=== PATIENT | female | born 1935 | race Hispanic/Latino ===

== ENCOUNTER 2018-10-08 05:30 | Day surgery (SDC) | payer OTHER ==
[2018-10-06 13:35] LABS: BASOPHILS % (AUTO) 1.1 % (0.0-5.0); EOSINOPHILS % (AUTO) 1.3 % (0.0-8.0); HEMATOCRIT 39.5 % (36-48); LYMPHOCYTES % (AUTO) 33.1 % (21.0-51.0); MEAN CORPUSCULAR HEMOGLOBIN 31.9 pg (27.0-33.0); MEAN CORPUSCULAR HGB CONC 33.9 g/dL (32.0-36.0); MEAN CORPUSCULAR VOLUME 93.9 fL (79-99); MONOCYTES % (AUTO) 7.1 % (3.0-13.0); NEUTROPHILS % (AUTO) 57.4 % (40.0-77.0); PLATELET COUNT (AUTO) 171 K/uL (130-400); RED BLOOD CELL COUNT(AUTO) 4.21 MIL/uL (4.00-5.50); RED CELL DISTRIBUTION WIDTH 14.4 % (11.0-15.5); WHITE BLOOD COUNT (AUTO) 9.3 K/uL (4.8-10.8)
[2018-10-06 13:45] VITALS: BP 149/60
[2018-10-06 13:46] LABS: CREATININE 1.4 mg/dL (0.5-1.5); POTASSIUM 3.9 mmol/L (3.5-5.1)
[2018-10-06 13:55] LABS: INR 1.03 (0.85-1.15); PARTIAL THROMBOPLASTIN TIME 28.9 SEC (26.3-35.5); PROTHROMBIN TIME 10.8 SEC (9.6-11.6)
[2018-10-08] VITALS (10 sets, daily range): BP systolic 105–141; BP diastolic 59–86
[~2018-10-08] VITALS: Ht 154.9 cm; Wt 85.8 kg
[~2018-10-08 05:30] MED LIST: CARV6.25 PO; DONE10TA43 PO; HYDR25TA PO; LEVO88TA7 PO; LISI40TA4 PO; ROSU20TA30 PO; SODIUM CHLORIDE 0.9% 1000ML 1,000 ML IV SCH
[2018-10-08] MEDS ORDERED: CEFAZOLIN SODIUM 1 GM VIAL ONE (08:34)
[2018-10-08] MEDS ORDERED: BUPIVACAINE/PF 0.25% 50ML VIAL IJ ONE (08:34)
[2018-10-08] MEDS ORDERED: LIDOCAINE HCL 1% MDV 50ML VIAL ONE (08:34)
[2018-10-08] MEDS ORDERED: MIDAZOLAM HCL 1 MG/ML 2ML VIAL ONE (09:12)
[2018-10-08] MEDS ORDERED: FENTANYL CITRATE PF 50 MCG/1 ML 2ML VIAL ONE (09:12)
[2018-10-08] MEDS ORDERED: ACETAMINOPHEN 325 MG TAB PO PRN ×2 (09:45)
--- NOTE | 2018-10-08 13:55 | NUR ---
PT ARRIVED AAOX3 NO C/O PAIN TO INCISION SITE, SITE IS D/I NO OOZING NO HEMATOMA. POST CARE INSTRUCTIION SGIVEN TO PT PLALED IN A WHEELCHAIR AND DRIVEN HOME.
== END 2018-10-08 13:55 | disposition home or self-care (01) ==
LOC: DAH 05:30
PROVIDERS: ATTEND Internal Medicine Cardiovascular Disease
DX: Z45.010 Encounter for checking and testing of cardiac pacemaker pulse generator [battery] (principal); Z79.899 Other long term (current) drug therapy; I48.91 Unspecified atrial fibrillation; Z79.01 Long term (current) use of anticoagulants; I25.10 Atherosclerotic heart disease of native coronary artery without angina pectoris; I21.3 ST elevation (STEMI) myocardial infarction of unspecified site; I10 Essential (primary) hypertension; E78.5 Hyperlipidemia, unspecified; E03.9 Hypothyroidism, unspecified; G47.30 Sleep apnea, unspecified; E55.9 Vitamin D deficiency, unspecified; Z68.34 Body mass index [BMI] 34.0-34.9, adult; Z98.890 Other specified postprocedural states
CPT/HCPCS: 33228; 36415; 80048; 85025; 85610; 85730; 93005; A4606; C1785; J0690; J2250; J3010; J3490 ×2; J7030; 99156; 99157